=== PATIENT | female | born 1955 | race Caucasian/White ===

== ENCOUNTER → 2023-03-16 07:25 | Outpatient (REF) | payer MEDICARE, OTHER, SELFPAY | LOC: RCS 07:25 | PROVIDERS: ATTENDING PHYSICIAN Family Medicine | DX: R01.1 Cardiac murmur, unspecified (principal); R19.00 Intra-abdominal and pelvic swelling, mass and lump, unspecified site | CPT/HCPCS: 74177; 93306; Q9967 ==

== ENCOUNTER → 2023-05-02 07:18 | Outpatient (REF) | payer MEDICARE, OTHER, SELFPAY ==
[2023-05-02 09:03] LABS: TSH 4.21 uIU/ml (0.47-4.68)
== END ==
LOC: REG 07:18
PROVIDERS: ATTENDING PHYSICIAN Family Medicine
DX: E03.9 Hypothyroidism, unspecified (principal)
CPT/HCPCS: 36415; 84443

== ENCOUNTER → 2023-09-06 12:30 | Outpatient (REF) | payer MEDICARE, OTHER, SELFPAY | LOC: WDC 12:30 | PROVIDERS: ATTENDING PHYSICIAN Family Medicine | DX: Z12.31 Encounter for screening mammogram for malignant neoplasm of breast (principal); Z78.0 Asymptomatic menopausal state | CPT/HCPCS: 77063; 77067; 77080 ==

== ENCOUNTER → 2023-11-02 20:25 | Outpatient (REF) | payer MEDICARE, OTHER, SELFPAY | LOC: MRI 3T 20:25 | PROVIDERS: ATTENDING PHYSICIAN Student in an Organized Health Care Education/Training Program; FAMILY PHYSICIAN Family Medicine | DX: M54.16 Radiculopathy, lumbar region (principal) | CPT/HCPCS: 72148 ==

== ENCOUNTER → 2023-11-22 07:39 | Outpatient (REF) | payer MEDICARE, OTHER, SELFPAY | LOC: HWRAD 07:39 | PROVIDERS: ATTENDING PHYSICIAN Internal Medicine Gastroenterology; FAMILY PHYSICIAN Family Medicine | DX: R10.31 Right lower quadrant pain (principal) | CPT/HCPCS: 76705 ==

== ENCOUNTER 2024-11-12 07:18 | Day surgery (SDC) | payer MEDICARE, OTHER, SELFPAY | END 2024-11-12 10:52 | disposition home or self-care (01) | LOC: GI 07:18 | PROVIDERS: ATTENDING PHYSICIAN Internal Medicine Gastroenterology; FAMILY PHYSICIAN Nurse Practitioner Adult Health | DX: Z12.11 Encounter for screening for malignant neoplasm of colon (principal); K57.30 Diverticulosis of large intestine without perforation or abscess without bleeding; K64.8 Other hemorrhoids; D12.0 Benign neoplasm of cecum; K63.5 Polyp of colon; K62.1 Rectal polyp | CPT/HCPCS: 45385; 45380; 88305 ==

== ENCOUNTER → 2024-11-26 07:47 | Outpatient (REF) | payer MEDICARE, OTHER, SELFPAY ==
[2024-11-26 09:20] LABS: Hematocrit 40.7 % (37.0-47.0); Hemoglobin 12.6 g/dL (12.0-16.0); Mean Corp Hgb Conc. 31.0 g/dL (33.0-37.0); Mean Corpuscular Volume 103.8 fL (81.0-99.0); Nucleated Red Blood Cells % 0 %; Platelet Count 252 10^3/uL (130-400); Red Cell Dist. Width 12.2 % (11.5-14.5)
[2024-11-26 10:19] LABS: ALT (SGPT) 19 U/L (0-35); AST (SGOT) 24 U/L (14-36); Albumin 4.0 g/dl (3.5-5.0); Alkaline Phosphatase 67 U/L (38-126); Blood Urea Nitrogen 18 mg/dl (7-17); Calcium 9.2 mg/dl (8.4-10.2); Carbon Dioxide 30 mmol/L (22-30); Chloride 107 mmol/L (98-107); Glucose 83 mg/dl (70-99); HDL Cholesterol 74 mg/dl; LDL Cholesterol, Calculated 100 mg/dl; Potassium 4.7 mmol/L (3.5-5.1); Sodium 141 mmol/L (135-145); Total Protein 6.7 g/dl (6.3-8.2); Very Low Density Lipoprotein 12 mg/dl (0-30); eGFR > 60.00
== END ==
LOC: REG 07:47
PROVIDERS: ATTENDING PHYSICIAN Nurse Practitioner Adult Health
DX: Z00.00 Encounter for general adult medical examination without abnormal findings (principal); E03.9 Hypothyroidism, unspecified; D75.89 Other specified diseases of blood and blood-forming organs
CPT/HCPCS: 36415; 80053; 80061; 84439; 84443; 85025